=== PATIENT | male | born 1970 | race Two or more races ===

== ENCOUNTER 2019-03-05 23:43 | Emergency (ER) | payer OTHER ==
[~2019-03-05] VITALS: Ht 177.8 cm; Wt 90.7 kg
[2019-03-05] MEDS ORDERED: NORVASC2.5 M1 (23:57)
[2019-03-05] MEDS ORDERED: HYDROCHLOROTHIA25 MG (23:58)
[2019-03-06] MEDS ORDERED: DICLOFENAC SODI50 MG PO (04:22)
[2019-03-06] MEDS ORDERED: NORFLEX100MG PO (04:22)
== END 2019-03-06 04:33 | disposition home or self-care (01) ==
LOC: ER 23:43
DX: M54.2 Cervicalgia (principal)